=== PATIENT | female | born 1965 | race Caucasian/White ===

== ENCOUNTER 2017-11-06 13:07 | Emergency (ER) | payer MEDICAID, SELFPAY ==
[~2017-11-06] VITALS: Ht 172.7 cm; Wt 99.8 kg
[~2017-11-06 13:07] MED LIST: BACTRIM DS TAB1 EAC1 ORAL; HYDROCODON-ACE1 EA16 ORAL; KEFLEX500 MG ORAL; NKM
[2017-11-06 13:22] VITALS: BP 166/102
[2017-11-06] MEDS ORDERED: CIPRODEX OTIC7.5 M1 LEFT EAR (13:30)
[2017-11-06] MEDS ORDERED: IBUPROFEN600 MG ORAL (13:30)
[2017-11-06] MEDS ORDERED: CORTISPORIN EAR10 ML OTIC (13:36)
--- NOTE | 2017-11-06 13:47 | Emergency Room Report ---
History of Present Illness General Chief Complaint: Earache Source: Patient Present Illness HPI 52-year-old female no significant past medical history presenting with right ear pain, states that she has had throbbing right ear pain since yesterday, no fever no chills, no nausea vomiting. No difficulty swallowing or throat pain. No headache or blurry vision any discharge from the ear. Denies any foreign body in the ear Allergies: Coded Allergies: No Known Allergies (Unverified , 04/04/14) Patient History Past Medical History: see triage record Past Surgical History: none Pertinent Family History: none Last Menstrual Period: Hysterectomy 2011 Reviewed Nursing Documentation: PMH: Agreed; PSxH: Agreed Nursing Documentation-PMH Past Medical History: No Stated History Review of Systems All Other Systems: negative except mentioned in HPI Physical Exam Vital Signs Date Time Temp Pulse Resp B/P (MAP) Pulse Ox O2 Delivery O2 Flow Rate FiO2 11/06/17 13:13 98.6 81 18 166/102 98 Room Air 98.6 Sp02 EP Interpretation: reviewed, normal General Appearance: alert, GCS 15, non-toxic, mild distress Head: normocephalic, atraumatic Eyes: bilateral eye normal inspection, bilateral eye PERRL, bilateral eye EOMI ENT: other - Right ear with swelling, tenderness with pulling of the tragus, white brown debris in right-sided ear canal, unable to visualize right TM secondary to swelling, left TM is normal, no mastoid tenderness, oropharynx is clear there is no pharyngeal erythema or tonsillar enlargement Neck: normal inspection, full range of motion, supple Respiratory: normal inspection Cardiovascular #1: normal inspection Cardiovascular #2: 2+ radial (R), 2+ radial (L) Gastrointestinal: normal inspection, non tender, soft Musculoskeletal: normal inspection, back normal, normal range of motion, non- tender Neurologic: normal inspection, alert, oriented x3, responsive, motor strength/ tone normal, sensory intact, normal gait, speech normal Psychiatric: normal inspection, judgement/insight normal, memory normal Skin: normal inspection, normal color, no rash, warm/dry, well hydrated, normal turgor Medical Decision Making Diagnostic Impression: Primary Impression: Otitis externa ER Course 52-year-old female with right ear pain DDX: Right ear pain: Otitis media versus otitis externa Plan: Pain control ER course: Patient has remained stable during ED stay. Disposition: Patient is to be discharged to home. Prescriptions given are cortisporin otic drops Patient is instructed to follow up with their primary care doctor or ENT doctor in 3-4 days for recheck Strict return precautions discussed with patient such as fever, chills, worsening/severe pain, headache, chest pain, SOB, nausea, vomiting, which may indicate severe illness. Patient verbalizes understanding and agrees with plan. Please note that this Emergency Department Report was dictated using [employer] associate judge technology software, occasionally this can lead to erroneous entry secondary to interpretation by the dictation equipment Last Vital Signs Date Time Temp Pulse Resp B/P (MAP) Pulse Ox O2 Delivery O2 Flow Rate FiO2 11/06/17 13:33 98.6 11/06/17 13:22 80 18 166/102 98 Room Air Disposition: HOME, SELF-CARE Condition: Stable Scripts Neomycin/Polymyxin B Sulf/Hc* (CORTISPORIN EAR SOLUTION*) 10 Ml Solution 2 DROP OTIC FOUR TIMES A DAY for 7 Days, #1 EA Instill in affected ear as directed for 7 days Prov: Isidra Cook M.D. 11/06/17 Ibuprofen* (MOTRIN*) 600 Mg Tablet 600 MG ORAL Q8H PRN for For Pain, #30 TAB 0 Refills Prov: Isidra Cook M.D. 11/06/17 Patient Instructions: Otitis Externa, [id number] Additional Instructions: PLEASE SEE AN ENT DOCTOR OR YOUR PCP IN 3-4 DAYS WITHOUT FAIL FOR RECHECK Isidra Cook M.D. November 06, 2017 13:47
[2017-11-06 19:18] VITALS: BP 166/102
== END 2017-11-06 13:50 | disposition home or self-care (01) ==
LOC: EMR 13:43
DX: H60.91 Unspecified otitis externa, right ear (principal)
CPT/HCPCS: 99284